=== PATIENT | male | born 1995 | race Caucasian/White ===

== ENCOUNTER 2018-01-16 18:30 | Emergency (ER) | payer SELFPAY ==
[2018-01-16 18:47] VITALS: BP 97/54
--- NOTE | 2018-01-16 19:13 | ED Physician Documentation ---
Eye Trauma - HISTORIAN Historian: patient - HPI Stated Complaint: L eye discomfort Chief Complaint: Eye Trauma Additional Information: Grinding galvanized steel at 0200 today and metal flew into left eye. Comes to ER tonight as eye is uncomfortabble. Denies blurred vision or drainage. Last tetanus 4 years ago. - ROS CONST: no problems - PAST HX Past History: none Immunizations: tetanus, UTD Allergies/Adverse Reactions: Allergies Allergy/AdvReac Type Severity Reaction Status Date / Time Sulfa (Sulfonamide AdvReac Hives Verified 01/16/18 18:47 Antibiotics) Home Medications: Ambulatory Orders Medication Instructions Recorded NK [NK] 11/30/14 - SOCIAL HX Smoking History: cigarettes - FAMILY HX Family History: no significant history - VITAL SIGNS Vital Signs: Vital Signs Temp Pulse Resp BP Pulse Ox 98.3 F 90 17 97/54 92 01/16/18 18:40 01/16/18 18:40 01/16/18 18:40 01/16/18 18:40 01/16/18 18:40 - REVIEWED ASSESSMENTS Nursing Assessment Reviewed: Yes Vitals Reviewed: Yes Progress - Progress Progress: Report Submission Date: Jan 16, 2018 8:03:08 PM CDT Patient Study Name: HEMA PADILLA Date: Jan 16, 2018 7:19:25 PM CDT Modality Type: DX Gender: M Description: NASAL/ORBITS : 95 Institution: [facility] Physician: JOHANN LOVE Orbits 4 views Date of Exam: January 16, 2018. History: PT STATES LT EYE PAIN AFTER GRINDING ON METAL LAST NIGHT. (Hx) / ITS.REASON ? metal FB OS Findings: No radiopaque orbital foreign body is identified. The visualized paranasal sinuses are clear. The nasal septum is midline and the nasal bones are intact. Impression: No radiopaque orbital foreign body. Electronically signed on Jan 16, 2018 8:03:08 PM CDT by: Sanjuana Crenshaw Eye Trauma Physical Exam - Physical Exam General Appearance: alert, mild distress Examined with Slit Lamp: Yes Visual Acuity: see nursing assessment (OD 20/25 OS 20/20) Eyelids: nml inspection Conjunctiva and Sclera: injected (L) Corneas: nml inspection EOM's: intact Pupils: PERRL, nml accommodation Anterior Chambers: nml inspection Head/ENT: nml inspection Skin: nml color, warm, skin intact Neck/Back: nml inspection Respiratory: no resp distress Neuro/Psych: neuro intact, mood/affect nml, sensory loss Discharge Clincal Impression: Eye injury, non-penetrating Qualifiers: Encounter type: initial encounter Laterality: left Qualified Code(s): S05.92XA - Unspecified injury of left eye and orbit, initial encounter Referrals: Primary Doctor,No [Primary Care Provider] - 2 Days Additional Instructions: Call the [facility] first thing in the morning and ask for the eye clinic. The phone number is [phone] Zamora said you should be seen in clinic tomorrow. Take the CD of your x-rays with you. You can take tylenol for discomfort or apply cool or warm compresses. Don't rub the eye. Condition: Good Disposition: 01 HOME, SELF-CARE Decision to Admit: NO Decision Time: 20:10
--- NOTE | 2018-01-16 21:31 | Diagnostic Imaging Report ---
[facility] [place] [facility] [id number] [facility] [address] Of [facility] [address] [place], [place]. [address] Report Submission Date: Jan 16, 2018 8:03:08 PM CDT Patient Study Name: HEMA PADILLA Date: Jan 16, 2018 7:19:25 PM CDT Modality Type: DX Gender: M Description: NASAL/ORBITS : 95 Institution: [facility] Physician: JOHANN LOVE Orbits 4 views Date of Exam: January 16, 2018. History: PT STATES LT EYE PAIN AFTER GRINDING ON METAL LAST NIGHT. (Hx) / ITS.REASON ? metal FB OS Findings: No radiopaque orbital foreign body is identified. The visualized paranasal sinuses are clear. The nasal septum is midline and the nasal bones are intact. Impression: No radiopaque orbital foreign body. Electronically signed on Jan 16, 2018 8:03:08 PM CDT by: Sanjuana SQUIRES
== END 2018-01-16 20:00 | disposition home or self-care (01) ==
LOC: ED 18:30
DX: S05.92XA Unspecified injury of left eye and orbit, initial encounter (principal); X58.XXXA Exposure to other specified factors, initial encounter; Y92.9 Unspecified place or not applicable; Y93.9 Activity, unspecified; Y99.9 Unspecified external cause status
CPT/HCPCS: 70200; 99283